=== PATIENT | female | born 1990 | race African-American/Black ===

== ENCOUNTER 2018-05-12 08:58 | Emergency (ER) | payer SELFPAY ==
[2018-05-12] MEDS ORDERED: Ibuprofen 200 MG TAB ONE (09:29)
--- NOTE | 2018-05-12 09:57 | RAD ---
TWO VIEWS CHEST: History: Sore throat, congestion, cough. FINDINGS: PA and lateral views of the chest obtained. The lungs are well aerated. No evidence of active intrathoracic disease is seen. No evidence of effus ions, pneumonia, or pneumothorax is seen. IMPRESSION: Normal two views chest. POS: [facility]
== END 2018-05-12 10:42 | disposition home or self-care (01) ==
LOC: ERS 08:58
DX: R05 Cough (principal); R50.9 Fever, unspecified; R09.81 Nasal congestion
CPT/HCPCS: 71046; 87081; 87430; 87804

== ENCOUNTER 2022-02-23 20:05 | Emergency (ER) | payer OTHER, SELFPAY ==
[2022-02-23] MEDS ORDERED: Ketorolac Tromethamine 30 MG/ML VIAL ONE (21:45)
== END 2022-02-23 22:04 | disposition home or self-care (01) ==
LOC: ERS 20:05
DX: M25.50 Pain in unspecified joint (principal); V43.62XA Car passenger injured in collision with other type car in traffic accident, initial encounter
CPT/HCPCS: 96372; J1885